=== PATIENT | female | born 1965 | race Caucasian/White ===

== ENCOUNTER 2016-06-05 11:48 | Emergency (ER) | payer MEDICARE ==
[~2016-06-05 11:48] MED LIST: ACCUPRIL20 MG; ACCURETIC 20-251 TAB; ACYCLOVIR400 MG PO; ADVAIR 2501 DISK W/D; ADVAIR 2501 DISK W/D IH; ALBUTEROL17 GM; ALLERGY RELIE15.8 ML; ALPRAZOLAM0.25 M3 PO; ALPRAZOLAM0.5 M2 PO; ANTI-DIARRHEAL2 MG PO; ANTIBIOTIC; ASPIR 8181 M1 PO; ASPIR 8181 MG; ASPIRIN325 MG; ASPIRIN81 MG; BACTRIM DS TAB1 EACH PO; BACTRIM DS TABL1 TAB; BACTRIM DS TABL1 TAB PO; BREO ELLIPTA 11 EAC1 IH; BUSPIRONE HCL15 MG; CHANTIX1 MG; CLINDAMYCIN HC150 MG; CRANBERRY PO; CRESTOR10 MG; CYMBALTA30 M1 PO; CYMBALTA30 MG PO; CYMBALTA60 M1 PO; CYMBALTA60 MG; CYMBALTA60 MG PO; DIOVAN HCT 160/1 TAB; DIOVAN HCT 320/1 TAB; DULOXETINE HCL60 MG PO; FLAGYL500 MG PO; FLUTICASONE PRO16 GM NS; HYDROCHLOROTH12.5 M1; HYDROCHLOROTH12.5 MG PO; HYDROCHLOROTHIA25 M1 PO; IBUPROFEN800 MG PO; IMITREX25 MG PO; K-DUR20 ME1 PO; KEFLEX500 M1 PO; KEFLEX500 M4 PO; KLOR-CON M2020 MEQ PO; LISINOPRIL20 MG; LISINOPRIL40 MG; LYRICA100 MG PO; LYRICA150 MG/CAP PO; MAXALT10 MG PO; NORCO 5/325 TAB1 TAB PO; OMEPRAZOLE40 M2 PO; OMNICEF300 MG; POTASSIUM CHLO20 ME3 PO; POTASSIUM CHLO20 MEQ; PREDNISONE10 MG PO; PREDNISONE20 M1 PO; PRENATAL VITAMI1 TAB; PREVACID30 MG; PRILOSEC20 MG; PROVENTIL17 G; RELPAX40 MG; ROSUVASTATIN CA10 MG PO; SINGULAIR10 M1 PO; SINGULAIR10 MG; VALTREX1000 MG; VALTREX1000 MG PO; VENTOLIN HFA18 G2 INH; VICODIN 5/500 T1 TAB PO; Valtrex; XANAX0.25 MG PO; ZESTRIL20 M3 PO; ZITHROMAX250MG Z-PAK PO; cymbalta PO
== END 2016-06-05 13:20 ==
LOC: EDMED 11:48
PROC: 0HQGXZZ Repair Left Hand Skin, External Approach (ICD-10-PCS; principal; 2016-06-05)
DX: S61.012A Laceration without foreign body of left thumb without damage to nail, initial encounter (principal); I11.0 Hypertensive heart disease with heart failure; I50.9 Heart failure, unspecified; K21.9 Gastro-esophageal reflux disease without esophagitis; E78.5 Hyperlipidemia, unspecified; J45.909 Unspecified asthma, uncomplicated; W45.8XXA Other foreign body or object entering through skin, initial encounter

== ENCOUNTER 2016-07-10 12:59 | Emergency (ER) | payer MEDICARE ==
[2016-07-10] MEDS ORDERED: CYMBALTA60 M1 PO (13:16)
[2016-07-10] MEDS ORDERED: IBUPROFEN800 M1 PO (13:18)
[2016-07-10] MEDS ORDERED: IMITREX6 MG/0.52 SC (13:19)
[2016-07-10 14:00] LABS: BASO ABSOLUTE COUNT 0.1 tho/cmm (0.0-0.2); EOSINOPHIL ABSOLUTE COUNT 0.7 tho/cmm (0.0-0.7); HCT-HEMATOCRIT 38.1 % (34.0-49.0); HGB-HEMOGLOBIN 13.2 gm/dl (12.0-15.5); IMMATURE GRANULOCYTES ABSOLUTE 0.03 tho/cmm (0-0.03); IMMATURE GRANULOCYTES PERCENT 0.3 % (0-0.3); LYMPH % 25.7 % (20-45); LYMPH ABSOLUTE COUNT 2.3 tho/cmm (0.8-4.5); MCH (MEAN CORPUSCULAR HGB) 30.8 pg (28.0-32.0); MCHC MEAN CORPUSCULAR HGB CONC 34.6 % (32.0-36.0); MEAN PLATELET VOLUME 11.5 cmc (9.4-12.4); MONO % 5.9 % (0-12); MONOCYTE ABSOLUTE COUNT 0.5 tho/cmm (0.0-1.2); NEUTROPHIL ABSOLUTE COUNT 5.4 tho/cmm (1.6-8.0); NEUTROPHIL-AUTOMATED 5.4 tho/cmm (1.6-8.0); NEUTROPHILS % 59.1 % (40-80); PLATELET COUNT 229 tho/cmm (150-450); RED BLOOD COUNT 4.28 mil/cmm (4.00-5.20); RED CELL DISTRIBUTION WIDTH 13.4 % (12.4-16.4)
[2016-07-10 14:18] LABS: ALB/GLOB RATIO 0.9 (0.8-2.0); ALBUMIN 3.3 g/dl (3.5-5.0); ALKALINE PHOSPHATASE 87 U/L (33-138); ALT/SGPT 20 U/L (12-78); ANION GAP 11 mmol/L (0-20); AST/SGOT 15 U/L (10-40); BILIRUBIN,TOTAL 0.4 mg/dl (0-1.5); BLOOD UREA NITROGEN 9 mg/dl (6-24); CALCIUM 8.6 mg/dl (8.5-10.5); CARBON DIOXIDE-VENOUS 26 mmol/L (22-32); CHLORIDE 108 mmol/l (96-110); CREATININE 0.74 mg/dl (0.50-1.10); GLUCOSE 110 mg/dL (70-110); POTASSIUM 3.3 mmol/L (3.7-5.1); SODIUM 142 mmol/L (135-145); eGFR VALUE FOR BLACK >90 mL/Min
[2016-07-10] MEDS ORDERED: ALBUTEROL2.5 MG/0.1 (14:43)
[2016-07-10] MEDS ORDERED: AZITHROMYCIN250 M1 PO (14:43)
[2016-07-10] MEDS ORDERED: PREDNISONE20 M1 PO (14:43)
== END 2016-07-10 15:15 ==
LOC: EDMED 12:59
PROVIDERS: Nurse Practitioner Family
DX: J44.9 Chronic obstructive pulmonary disease, unspecified (principal); J20.9 Acute bronchitis, unspecified; J45.909 Unspecified asthma, uncomplicated; I50.9 Heart failure, unspecified; G47.30 Sleep apnea, unspecified; Z90.710 Acquired absence of both cervix and uterus; Z95.5 Presence of coronary angioplasty implant and graft; Z90.89 Acquired absence of other organs; Z88.0 Allergy status to penicillin; Z88.1 Allergy status to other antibiotic agents; Z79.82 Long term (current) use of aspirin; Z79.51 Long term (current) use of inhaled steroids; Z79.899 Other long term (current) drug therapy